=== PATIENT | male | born 2005 ===

== ENCOUNTER 2023-03-18 15:34 | Outpatient (REF) | payer OTHER, SELFPAY ==
--- NOTE | ~2023-03-18 | US_ITS ---
EXAMINATION: US SCROTUM CLINICAL INFORMATION: Mass left testicle. COMPARISON: None available. TECHNIQUE: A sonogram of the scrotum was performed assessing meek-scale appearance and color Doppler flow. Spectral Doppler analysis of the arterial and venous flow were performed in the testes bilaterally. FINDINGS: RIGHT: Right testicle measures 3.7 x 1.9 x 2.8 cm, volume 10.3 mL. No focal testicular parenchymal lesions are visualized. Spectral Doppler analysis of the arterial and venous flow is normal in the right testis. Right epididymal head is normal in size. Right epididymal cyst measures 0.2 x 0.2 x 0.2 cm. No right hydrocele or varicocele is seen. Right epididymal Doppler flow is normal. LEFT: Left testicle measures 3.9 x 1.9 x 2.3 cm, volume 9.1 mL. No focal testicular parenchymal lesions are visualized. Spectral Doppler analysis of the arterial and venous flow is normal in the left testis. Left epididymal head is normal in size. Left epididymal head cluster of cysts versus complex cyst with thick septations measures 0.5 x 0.5 x 0.5 cm. Small left hydrocele. No left varicocele. Left epididymal Doppler flow is normal. US/US scrotum IMPRESSION: 1. Right epididymal head 0.2 cm cyst. 2. Left epididymal head 0.5 cm cluster of cysts versus less likely complex cyst with thick septations. 3. Small left hydrocele. Urology consultation recommended to determine further management.
== END 2023-03-18 15:35 | disposition home or self-care (01) ==
LOC: HO.US 15:34
PROVIDERS: PCP Pediatrics Adolescent Medicine; Visit Provider Pediatrics Adolescent Medicine
DX: N50.9 Disorder of male genital organs, unspecified (principal)
CPT/HCPCS: 76870